=== PATIENT | male | born 1935 | race Caucasian/White ===

== ENCOUNTER → 2018-04-15 | Outpatient (CLI) | payer MEDICARE, OTHER | END | disposition home or self-care (01) | LOC: CFH 11:03 | PROVIDERS: ATTEND Internal Medicine Cardiovascular Disease | DX: J90 Pleural effusion, not elsewhere classified (principal); J98.11 Atelectasis; I10 Essential (primary) hypertension; I35.0 Nonrheumatic aortic (valve) stenosis; I48.91 Unspecified atrial fibrillation; N28.9 Disorder of kidney and ureter, unspecified; R06.00 Dyspnea, unspecified | CPT/HCPCS: 71046 ==